=== PATIENT | female | born 1965 | race Caucasian/White ===

== ENCOUNTER → 2016-11-23 | Outpatient (CLI) | payer BC ==
[~2016-11-23] MED LIST: ASCO1CAP3 PO; BLOOD PRESSURE PO; CITA10TA4 PO; CRAN1TAB9 PO; FEXO1TAB46 PO; HYDR12.55 PO; MISCCAP80 PO; MULT-506 PO; VITAMIN B PO; VSC/5 PO
--- NOTE | 2016-11-23 16:30 | MAMMOGRAPHY REPORT ---
BILATERAL DIGITAL SCREENING MAMMOGRAM TOMOSYNTHESIS WITH CAD: 11/23/2016 CLINICAL HISTORY: Routine screening. Patient has no complaints. TECHNIQUE: Breast tomosynthesis in addition to standard 2D mammography was performed. Current study was also evaluated with a Computer Aided Detection (CAD) system. COMPARISON: Comparison is made to exams dated: 11/21/2015 mammogram, 11/17/2013 mammogram, 11/19/2014 mammogram, 12/01/2013 mammogram, 11/13/2012 mammogram, and 11/15/2011 mammogram - [facility]. BREAST COMPOSITION: The tissue of both breasts is extremely dense, which lowers the sensitivity of mammography. FINDINGS: There is an area of possible architectural distortion seen within the left upper outer qu adrant on the tomosynthesis images. Recommend correlation with any surgical history and recommend s pot compression tomosynthesis views and possible breast ultrasound for further evaluation. Addition ally, there is an oval partially circumscribed and partially obscured 14 mm mass seen within the rig ht upper outer quadrant, best seen on the tomosynthesis images, for which ultrasound is recommended for further evaluation. This may represent a cyst. There is a rounded 7 mm asymmetry seen within t he right superior posterior breast on the MLO view only, which appears similar to the 2015 and 2014 exams, however, ultrasound and possible additional views are recommended for further evaluation. The remainder of both breasts are stable compared to prior exams, without suspicious masses, calcifi cations, or areas of architectural distortion noted. IMPRESSION: ACR BI-RADS CATEGORY 0: INCOMPLETE EVALUATION: NEED ADDITIONAL IMAGING EVALUATION Possible left breast architectural distortion as well as a right breast mass and asymmetry, for whic h additional imaging evaluation is recommended. The patient will be called to schedule an appointment. Approximately 10% of breast cancers are not detected with mammography. A negative mammographic repor t should not delay biopsy if a clinically suggestive mass is present. Letty Owens M.D. ah/:11/23/2016 15:55:41 Harm Reduction Worker: Reji SCHAFER(Magaly)(M), [facility] letter sent: Addl Imaging 0 BI-RADS Code: ACR BI-RADS Category 0: Incomplete Evaluation: Need Additional Imaging Evaluation
== END | disposition home or self-care (01) ==
LOC: C.MAMM 09:44
PROVIDERS: ATTEND Nurse Practitioner Family
DX: Z12.31 Encounter for screening mammogram for malignant neoplasm of breast (principal)

== ENCOUNTER → 2016-12-05 | Outpatient (CLI) | payer BC ==
--- NOTE | 2016-12-06 07:37 | MAMMOGRAPHY REPORT ---
UNILATERAL LEFT DIGITAL DIAGNOSTIC MAMMOGRAM TOMOSYNTHESIS AND TARGETED BILATERAL ULTRASOUND: 12/05/19 CLINICAL HISTORY: 51-year-old woman called back from screening mammography for 2 right breast masses and left breast architectural distortion. Although the images are not available, the patient has a history of prior left breast surgery reportedly in the central breast for which he underwent image guided needle localization and surgical excisional biopsy with Dr. Noble. On visual inspection the re is an upper outer quadrant periareolar incision in the left breast. TECHNIQUE: Spot compression tomosynthesis and 2-D digital left CC and MLO views were obtained. 2-D digital and tomosynthesis MLO views of each breast were also obtained after placement of skin BBs. COMPARISON: Comparison is made to exams dated: 11/23/2016 mammogram, 11/21/2015 mammogram, 11/19/2014 mammogram, 11/13/2012 mammogram, 11/12/2011 mammogram, and 11/09/2010 mammogram - [facility]. BREAST COMPOSITION: The tissue of the left breast is extremely dense, which lowers the sensitivity of mammography. FINDINGS: The spot compression tomosynthesis images of the left upper outer quadrant demonstrate pe rsistent focal architectural distortion in the 2:00 to 3:00 breast, 3 cm from the nipple. The stand nigel 2-D views in this area appears similar to all available prior mammograms dating back to at least 2007. No associated microcalcifications or obvious central mass. Further evaluation with ultrasou nd was performed. Real-time high-resolution ultrasound was performed in the upper outer anterior left breast, and thro ughout the right breast. In the 3:00 left breast, 2 cm from the nipple, there is a circumscribed ro unded hypoechoic mass with posterior acoustic enhancement. This could represent a complicated cyst or solid mass. It measures 5.2 x 5.3 x 4.7 mm. Slightly medial in the 3:00 left breast periareolar region, focal architectural distortion is seen involving ducts and dense glandular tissue. This lo calizes to the parenchyma in the region of the skin surgical scar in the periareolar 1:00 through 3: 00 left breast, and is compatible with postsurgical scarring. Sonographic evaluation in the right breast demonstrates an oval parallel anechoic benign simple cyst in the 9:00 periareolar breast measuring 12.2 x 12.2 x 6.2 mm. This correlates well with the anter ior mammographic mass and is benign. Additional sonographic evaluation performed throughout the sup erior right breast demonstrates a mixed echogenicity area with vague hypoechoic tissue within. Ther e are somewhat demarcated borders measuring 15.0 x 6.7 x 10.8 mm. This could possibly correlate wit h the asymmetry seen in the far superior and posterior breast on the MLO view. For confirmation a s kin BB was placed overlying the sonographic abnormality and a repeat right MLO view including tomosy nthesis images were performed. The skin BB aligns with the asymmetry in question, confirming mammog raphicsonographic correlation. IMPRESSION: ACR BI-RADS CATEGORY 4B: INTERMEDIATE SUSPICION FOR MALIGNANCY, TARGETED ULTRASOUND ACR BI-RADS CATEGORY 4B: INTERMEDIATE SUSPICION FOR MALIGNANCY 1. The architectural distortion in the 2:00 to 3:00 periareolar left breast is located deep to a sk in surgical scar in the periareolar left breast. Previous hospital records demonstrate the patient had a needle localization and surgical excision in 2002 and this is compatible with benign postsurgi eber architectural distortion. 2. A 13 mm circumscribed mass in the 9:00 anterior right breast correlates with a benign anechoic s imple cyst on ultrasound. 3. An increasingly prominent 18 mm asymmetry in the superior posterior right breast, only seen on t he MLO view correlates with a mixed echogenicity 15 mm lesion on ultrasound. Given the mixed echoge nicity and solid nature of this mass, as well as ill-defined borders, it is indeterminate, warrantin g further evaluation with ultrasound-guided core needle biopsy. 4. At the time of ultrasound-guided core biopsy in the right breast, ultrasound-guided cyst aspirat ion should be performed in the 3:00 left breast, 2 cm from the nipple, to ensure resolution of a pro bable complicated 5 mm cyst incidentally identified on ultrasound. These results and recommendations were discussed with the patient at the time of the exam. She tent atively scheduled the left breast cyst aspiration and right breast ultrasound guided core biopsy richard or to leaving our department. Approximately 10% of breast cancers are not detected with mammography. A negative mammographic repor t should not delay biopsy if a clinically suggestive mass is present. Lashonda Rowe M.D. ay/:12/05/2016 11:49:22 Transmission Line Engineer: Salma Thomas [facility] letter sent: Abnormal 01/30 BI-RADS Code: ACR BI-RADS Category 4B: Intermediate Suspicion For Malignancy Ultrasound BI-RADS: AC R BI-RADS Category 4B: Intermediate Suspicion For Malignancy
== END | disposition home or self-care (01) ==
LOC: C.MAMM 08:36
PROVIDERS: ATTEND Nurse Practitioner Family
DX: N63 Unspecified lump in breast (principal); N64.9 Disorder of breast, unspecified

== ENCOUNTER → 2016-12-19 | Outpatient (CLI) | payer BC ==
--- NOTE | 2016-12-19 08:35 | Discharge Instructions ---
Discharge Instructions Procedure Procedure Date: Dec 19, 2016. Reason for visit: Rt Mass/Lt Cyst. Discharge Discharge Date: Dec 19, 2016. Discharge Diagnosis: status post breast biopsy Instructions Activity Recommendations: Additional Limitations (see below) Return to School/Work: no limitations Recommended Home Diet: No Limitations Provider Instructions: ACTIVITY RECOMMENDATIONS: * No lifting, pushing, pulling or exercising the affected side for three days. RETURN TO SCHOOL/WORK: * You may return to work/school after the procedure, but do not perform any strenuous activities for 24 to 48 hours. MEDICATIONS: * Tylenol (two 325 mg) every four to six hours if needed for mild pain (if not allergic to Tylenol). DIET: * Resume previous diet. SPECIAL CARE INSTRUCTIONS: * Keep biopsy site dry for 24 hours. May shower after 24 hours, but do not soak (bathe) incision. * May remove Tegaderm (plastic patch) tomorrow AFTER showering. * Leave the steri-strips on for one week. Allow the steri-strips to fall off by themselves. If not off after one week, you may remove them. You may place a Bandaid crosswise over the strips, if desired. * Apply ice 10 minutes on and 10 minutes off as needed. * Wear a bra at bedtime to sleep more comfortably for 2-3 days. * Your referring physician should have the results after approximately 5 to 7 business days. * Call for unusual bleeding, fever, drainage, etc or if you have any questions call during normal business hours or after hours call Dr Owens, [phone]. FOLLOW UP VISIT: Follow-up with Referring Physician as scheduled. Allergies Coded Allergies: Sulfa Drugs (Verified Allergy, Unknown, FLU SYMPTOMS AND TROUBLE BREATHING , 02/21/15) Sulfamethoxazole w/Trimethoprim (Verified Allergy, Unknown, FLU SYMPTOMS, 02/21/15) Vira Smith Recommendations: Call your doctor if: * Temperature above 101 degrees * Pain not relieved by pain medicine ordered * There is increased drainage or redness from any incision * You have any unanswered questions or concerns. Your Doctors Instructions noted above were prepared by provider Letty Owens. Patient Signature Section: Patient Instructions Signature Page Bertha Lanier Patient (or Guardian) Signature/Date: I have read and understand the instructions given to me by my caregivers. Caregiver/RN/Doctor Signature/Date: The above-named patient and/or guardian has received patient instructions on this date. + Original Patient Signature Page (only) stays with chart. Please make copy for patient.
--- NOTE | 2016-12-19 13:33 | MAMMOGRAPHY REPORT ---
ASPIRATION LEFT BREAST: 12/19/2016 CLINICAL HISTORY: Left 3:00 breast mass. PATIENT CONSENT: The procedure and risks of ultrasound-guided cyst aspiration were discussed in full with the patient. Both oral and written consents were obtained. PROCEDURE DESCRIPTION: With ultrasound guidance, aseptic technique, and 1% lidocaine as a local anes thetic, the mass of concern in the left 3:00 breast was aspirated to completion. Benign type yellow fluid was obtained and discarded. Direct pressure was applied to the site immediately post procedu re and hemostasis was achieved. The patient tolerated the procedure without complication. COMPARISON: Comparison is made to exams dated: 12/05/2016 ultrasound, 12/05/2016 mammogram, 11/23/2016 m ammogram, 11/21/2015 mammogram, 11/19/2014 mammogram, and 12/01/2013 ultrasound - [facility]. IMPRESSION: ASPIRATION Ultrasound guided aspiration of the left 3:00 breast mass. Benign-type fluid was aspirated and disc arded. Given that it completely aspirated, it is consistent with a benign cyst. Letty Owens M.D. ah/:12/19/2016 08:42:38 Archery Equipment Repairer: Lydia SCHAFER(Magaly)(M), [facility]
--- NOTE | 2016-12-19 13:33 | MAMMOGRAPHY REPORT ---
ULTRASOUND GUIDED BIOPSY RIGHT BREAST: 12/19/2016 CLINICAL HISTORY: Right 12:30 breast mass. PATIENT CONSENT: The procedure, risks and benefits were discussed with the patient and informed writ ten consent was obtained. A timeout was performed immediately prior to the procedure. PROCEDURE DESCRIPTION: With ultrasound guidance, aseptic technique, and lidocaine as the local anest hetic (1% lidocaine to anesthetize the skin and 1% lidocaine with epinephrine to anesthetize the anna per tissues), the mass of concern in the right 12:30 breast was sampled 3 times with a 14-gauge Achi rex biopsy needle. Immediately thereafter, with ultrasound guidance, aseptic technique, and lidocai ne as the local anesthetic, a metallic localizer clip was placed at the biopsy site. Direct pressur e was applied to the site immediately post procedure and hemostasis was achieved. Postprocedure uni lateral mammograms were performed to confirm placement of the clip in the expected location of the b reast mass. The patient tolerated the procedure without complication. She was given wound care ins tructions. The specimens were sent to pathology for analysis. COMPARISON: Comparison is made to exams dated: 12/05/2016 mammogram, 11/21/2015 mammogram, 11/19/2014 m ammogram, 12/01/2013 mammogram, 11/13/2012 mammogram, and 11/15/2011 mammogram - [facility]. IMPRESSION: ULTRASOUND GUIDED BIOPSY Ultrasound guided core needle biopsy of the right 12:30 breast mass, with clip placement. The patie nt will receive pathology results from her referring provider. Letty Owens M.D. ah/:12/19/2016 09:14:31 Review Nurse: Lydia SCHAFER(Magaly)(M), [facility]
--- NOTE | 2016-12-19 13:36 | MAMMOGRAPHY REPORT ---
UNILATERAL RIGHT DIGITAL DIAGNOSTIC MAMMOGRAM TOMOSYNTHESIS: 12/19/2016 CLINICAL HISTORY: Status post ultrasound guided biopsy of the right 12:30 breast mass. TECHNIQUE: Breast tomosynthesis in addition to standard 2D mammography was performed. Postprocedur al right CC and ML tomosynthesis images including C views were obtained. COMPARISON: Comparison is made to exams dated: 12/05/2016 mammogram, 11/21/2015 mammogram, 11/19/2014 m ammogram, 12/01/2013 mammogram, and 11/13/2012 mammogram - [facility]. BREAST COMPOSITION: The tissue of the right breast is extremely dense, which lowers the sensitivity of mammography. FINDINGS: A new biopsy marker clip is seen at the site of the biopsied mass in the right 12:[address] The clip is located at the site of the mammographic asymmetry on the ML view, indicating good c orrelation between the sonographic finding and the mammographic finding. No significant postbiopsy hematoma is seen. IMPRESSION: POST PROCEDURE IMAGING FOR MARKER PLACEMENT New biopsy marker clip status post ultrasound-guided core needle biopsy of the right 12:30 breast ma ss. Pathology results are pending. Approximately 10% of breast cancers are not detected with mammography. A negative mammographic repor t should not delay biopsy if a clinically suggestive mass is present. Letty Owens M.D. /:12/19/2016 09:17:25 Fur Blowing Machine Attendant: Lydia YANG)(M), [facility] BI-RADS Code: Post Procedure Imaging For Marker Placement
== END | disposition home or self-care (01) ==
LOC: C.MAMM 07:56
PROVIDERS: ATTEND Nurse Practitioner Family
DX: N63 Unspecified lump in breast (principal); N60.81 Other benign mammary dysplasias of right breast

== ENCOUNTER → 2017-08-26 | Outpatient (CLI) | payer BC ==
--- NOTE | 2017-08-26 11:57 | DIAGNOSTIC IMAGING REPORT ---
TWO VIEW CHEST CLINICAL HISTORY: Pneumonia. FINDINGS: PA and lateral chest radiographs are obtained. No prior studies are available for comparison at the time of dictation. The cardiomediastinal silhouette is unremarkable. The lungs and pleural spaces are clear. There is no pneumothorax. The bony thorax appears intact. IMPRESSION: No active disease in the chest. Electronically signed by: Rufino Quevedo M.D. 08/26/2017 11:56 AM Dictated Date/Time: 08/26/2017 11:56 AM
== END | disposition home or self-care (01) ==
LOC: C.RAD1850 11:45
PROVIDERS: ATTEND Student in an Organized Health Care Education/Training Program
DX: J18.9 Pneumonia, unspecified organism (principal)

== ENCOUNTER → 2017-09-30 | Outpatient (CLI) | payer BC | END | disposition home or self-care (01) | LOC: C.PAPS 11:59 | PROVIDERS: ATTEND Obstetrics & Gynecology | DX: Z01.419 Encounter for gynecological examination (general) (routine) without abnormal findings (principal) ==

== ENCOUNTER → 2017-11-01 | Outpatient (CLI) | payer BC, OTHER ==
--- NOTE | 2017-11-01 15:47 | DIAGNOSTIC IMAGING REPORT ---
L SHOULDER MIN 2 VIEWS CLINICAL HISTORY: 52 years-old Female presenting with LEFT SHOULDER PAIN. TECHNIQUE: External rotation, transscapular Y, and axillary views of the left shoulder were obtained. COMPARISON: Comparison made to chest x-ray from 08/26/2017. FINDINGS: Glenohumeral and acromioclavicular joints congruent. No subluxation of the humeral head. Normal configuration of the acromion. No degenerative change. No acute fracture or malalignment. No radiographic soft tissue abnormality. Visualized portion of the left hemithorax normal. IMPRESSION: No acute osseous injury of the left shoulder. Electronically signed by: Eduardo Zurita M.D. 11/01/2017 3:46 PM Dictated Date/Time: 11/01/2017 3:45 PM
== END | disposition home or self-care (01) ==
LOC: C.RDSM 15:01
PROVIDERS: ATTEND Family Medicine
DX: M25.512 Pain in left shoulder (principal)

== ENCOUNTER → 2017-12-06 | Outpatient (CLI) | payer OTHER ==
--- NOTE | 2017-12-06 15:27 | MAMMOGRAPHY REPORT ---
BILATERAL DIGITAL SCREENING MAMMOGRAM TOMOSYNTHESIS WITH CAD: 12/06/2017 CLINICAL HISTORY: Routine screening. TECHNIQUE: Breast tomosynthesis in addition to standard 2D mammography was performed. Current study was also evaluated with a Computer Aided Detection (CAD) system. COMPARISON: Comparison is made to exams dated: 11/23/2016 mammogram, 11/21/2015 mammogram, 11/19/2014 m ammogram, 11/17/2013 mammogram, 11/13/2012 mammogram, and 11/12/2011 mammogram - [facility]. BREAST COMPOSITION: The tissue of both breasts is extremely dense, which lowers the sensitivity of m ammography. FINDINGS: No suspicious masses, calcifications, or areas of architectural distortion are noted in ei ther breast. There has been no significant interval change compared to prior exams. A biopsy marker clip is again noted within the right 12:00 breast. Architectural distortion in the left lateral jan[address] is stable and consistent with postsurgical changes. IMPRESSION: ACR BI-RADS CATEGORY 2: BENIGN There is no mammographic evidence of malignancy. A 1 year screening mammogram is recommended. The pa tient will receive written notification of the results. Approximately 10% of breast cancers are not detected with mammography. A negative mammographic report should not delay biopsy if a clinically suggestive mass is present. Letty Owens M.D. /:12/06/2017 12:38:01 Paving Foreman: Reji YANG)(Jeanna), [facility] letter sent: Normal 1/2 BI-RADS Code: ACR BI-RADS Category 2: Benign
== END | disposition home or self-care (01) ==
LOC: C.MAMM 08:42
PROVIDERS: ATTEND Obstetrics & Gynecology
DX: Z12.31 Encounter for screening mammogram for malignant neoplasm of breast (principal)